=== PATIENT | female | born 1945 | race Caucasian/White ===

== ENCOUNTER 2024-10-30 07:16 | Outpatient (CLI) | payer MEDICARE, BC, SELFPAY ==
--- NOTE | 2024-10-30 07:45 | NM_ITS ---
Patient: MICHELLE SEGOVIA Facility:?[facility] [place] [facility] Patient ID:?[id number] Site Patient [id number]:?[id number]. Site :?[id number] Study:?[id number]-0/29/2025 1:52:00 PM Ordering Physician:Hemant Carbajal Final Report: Indication: 78-year-old woman, with concern for subclinical hyperthyroidism. Technique: Twenty-four hours following oral administration of 316 Microcuries of I-123, thyroid uptake and scan is performed with a view of the neck that includes salivary glands. Comparison: None Findings: The [id number] includes the salivary glands, with low-level tracer uptake demonstrated in bilateral salivary glands. The thyroid gland is enlarged, left greater than right, and is heterogeneous in appearance, with foci of low uptake in the left upper thyroid, left lower thyroid, and right mid thyroid. The 24 hour uptake in the thyroid is 13.0% (12-30% is normal range). Impression: The field of view in this study includes the salivary glands demonstrating low level uptake, which likely causes slight underestimation of the intensity of radiotracer uptake by the thyroid. If clinically indicated, this exam can be repeated free of charge to the patient, with dedicated thyroid pinhole images the only include the thyroid and do not include the salivary glands. Within the limitations: 1. Uptake in the thyroid measures 13%, within normal limits. No definite evidence to support hyperthyroidism in this study. 2. Bilateral enlargement of the heterogeneous thyroid with multifocal low uptake in the left upper thyroid, left lower thyroid, and right mid thyroid that raise concern for hypofunctioning thyroid nodules. Hyperfunctioning thyroid nodules are nonspecific, but can be seen with primary thyroid neoplasm. Correlate with thyroid ultrasound. Dictated by Amor Soto MD @ 11/04/2024 2:55:04 PM (Electronic Signature)
== END 2024-10-30 07:17 | disposition home or self-care (01) ==
LOC: NM 07:24
PROVIDERS: PCP Student in an Organized Health Care Education/Training Program; Visit Provider Student in an Organized Health Care Education/Training Program
DX: E05.90 Thyrotoxicosis, unspecified without thyrotoxic crisis or storm (principal)
CPT/HCPCS: 78014; A9509